=== PATIENT | male | born 1995 | race Two or more races ===

== ENCOUNTER 2017-04-09 01:05 | Emergency (ER) | payer OTHER ==
[~2017-04-09] VITALS: Ht 165.1 cm; Wt 81.6 kg
[2017-04-09 01:05] VITALS: BP 129/74
== END 2017-04-09 01:19 ==
LOC: ER 01:08
DX: S40.851A Superficial foreign body of right upper arm, initial encounter (principal); X58.XXXA Exposure to other specified factors, initial encounter; Y92.89 Other specified places as the place of occurrence of the external cause; Y93.89 Activity, other specified; Y99.8 Other external cause status
CPT/HCPCS: 93005; 99283; A4606; Z7610